=== PATIENT | female | born 2000 | race Caucasian/White ===

== ENCOUNTER 2021-08-31 01:50 | Emergency (ER) | payer MEDICAID ==
[2021-08-31] MEDS ORDERED: Promethazine 25 MG/ML SDV IM ONE (02:10)
[2021-08-31] MEDS ORDERED: Take Home: Promethazine 25 MG, 4 Tab Pack PO ONE (02:51)
[2021-09-01 13:12] LABS: C.TRACHOMATIS BY TMA Negative (Negative); N.GONORRHOEAE BY TMA Negative (Negative)
== END 2021-08-31 03:20 | disposition home or self-care (01) ==
LOC: VM.ED 01:50
DX: K52.9 Noninfective gastroenteritis and colitis, unspecified (principal); Z88.0 Allergy status to penicillin; Z20.822 Contact with and (suspected) exposure to COVID-19
CPT/HCPCS: 81000; 87086; 87491; 87591; 96372; 99283; 99284; A9270-GY; J2550; U0002